=== PATIENT | female | born 1995 ===

== ENCOUNTER 2025-01-22 23:41 | Emergency (ER) | payer MEDICAID ==
[~2025-01-22] VITALS: Ht 175.3 cm; Wt 65.0 kg
[2025-01-22 23:42] VITALS: O2SAT 99
[2025-01-23 00:20] LABS: CHLORIDE 106 mEq/L (98-107); POTASSIUM 3.6 mEq/L (3.5-5.1); SODIUM 140 mEq/L (136-145)
[2025-01-23 00:21] LABS: CALCIUM 9.3 mg/dL (8.7-10.4); CARBON DIOXIDE 28 mEq/L (21-32)
[2025-01-23 00:24] LABS: CLARITY URINE TURBID (CLEAR); COLOR URINE YELLOW (YELLOW); GLUCOSE URINE NEGATIVE (NEGATIVE); KETONES URINE NEGATIVE (NEGATIVE); LEUKOCYTE ESTERASE URINE 2+ (NEGATIVE); NITRITE URINE NEGATIVE (NEGATIVE); OCCULT BLOOD URINE NEGATIVE (NEGATIVE); PH URINE 6.5 (4.5-8.0); PROTEIN URINE NEGATIVE (NEGATIVE); UROBILINOGEN URINE 0.2 E.U./dL (0.2-1.0)
[2025-01-23 00:25] LABS: UREA NITROGEN BLOOD 7 mg/dL (9-23)
[2025-01-23 00:26] LABS: CREATININE 0.6 mg/dL (0.6-1.0); GLUCOSE 98 mg/dL (70-105)
[2025-01-23 00:27] LABS: BASOPHILS % 1.3 % (0.0-2.0); EOSINOPHILS % 1.5 % (0.0-5.0); HEMATOCRIT. 34.1 % (36.0-48.0); HEMOGLOBIN. 11.5 g/dL (12.0-16.0); LYMPHOCYTES % 33.9 % (20.0-50.0); MEAN CORPUSCULAR HEMOGLOBIN 29.5 pg (28.0-32.0); MEAN CORPUSCULAR HGB CONC 33.8 g/dL (31.0-37.0); MEAN CORPUSCULAR VOLUME 87.1 fL (81.0-99.0); MEAN PLATELET VOLUME 7.7 fl (7.4-10.4); MONOCYTES % 7.3 % (2.0-8.0); PLATELET 429 x1000/uL (130-400); RED BLOOD CELL COUNT 3.91 mill/uL (4.2-5.4); RED CELL DISTRIBUTION WIDTH 15.2 % (11.6-14.6); WHITE BLOOD COUNT 9.2 x1000/uL (4.5-11.0)
[2025-01-23 00:28] LABS: ACETAMINOPHEN < 2 ug/mL (10-30); ALANINE AMINOTRANSFERASE 11 IU/L (10-49); ALBUMIN 3.9 g/dL (3.2-4.8); ASPARTATE AMINOTRANSFERASE 15 IU/L (<34); BILIRUBIN DIRECT 0.1 mg/dL (<=3.0); BILIRUBIN TOTAL 0.4 mg/dL (0.1-1.0); PROTEIN TOTAL 6.9 g/dL (6.0-8.3)
[2025-01-23 00:34] LABS: *AMPHETAMINES SCREEN URINE NEGATIVE (NEGATIVE); *BARBITURATES SCREEN URINE NEGATIVE (NEGATIVE); *BENZODIAZEPINES SCREEN URINE NEGATIVE (NEGATIVE)
[2025-01-23 00:35] LABS: *COCAINE SCREEN URINE NEGATIVE (NEGATIVE); CANNABINOID URINE SCREEN NEGATIVE (NEGATIVE); ECSTASY MDMA SCREEN URINE NEGATIVE (NEGATIVE); METHADONE URINE SCREEN NEGATIVE (NEGATIVE); OPIATES URINE SCREEN NEGATIVE (NEGATIVE); PHENCYCLIDINE URINE SCREEN NEGATIVE (NEGATIVE)
[2025-01-23] MEDS ORDERED: LAMO25TA71 MT (00:37)
[2025-01-23] MEDS ORDERED: ARIP5TAB51 MT (00:38)
[2025-01-23 00:40] LABS: HCG SCREEN NEGATIVE
[2025-01-23 00:46] LABS: ETHANOL BLOOD < 10 mg/dL (<10)
[2025-01-23] MEDS: LAMOTRIGINE 25MG TABLET PO SCH (01:00)
[2025-01-23 01:07] LABS: SQUAMOUS EPITHELIAL CELL URINE 2+ /lpf (RARE/1+)
[2025-01-23 01:08] LABS: RBC URINE 0-2 /hpf (0-2); WBC URINE 15-25 /hpf (0-2)
[2025-01-23 01:09] LABS: BACTERIA URINE TRACE
[2025-01-23] MEDS ORDERED: ARIPIPRAZOLE 5MG TABLET PO NR (01:15)
[2025-01-23] MEDS: ARIPIPRAZOLE 5MG TABLET PO ONE (01:16)
[2025-01-23] MEDS ORDERED: *PATIENT'S OWN MEDICATION STORAGE XX SCH (07:00)
[2025-01-23] MEDS: ARIPIPRAZOLE 5MG TABLET PO SCH (09:00)
[2025-01-23] MEDS: NITROFURANTOIN 100MG M/M CAPSULE PO ONE (20:23)
[2025-01-23 20:30] VITALS: BP 110/65; PULSE 86; RESP 16; TEMP 36.8; O2SAT 100
== END 2025-01-23 21:30 ==
LOC: ER 23:41
DX: R45.851 Suicidal ideations (principal); F31.5 Bipolar disorder, current episode depressed, severe, with psychotic features; F43.10 Post-traumatic stress disorder, unspecified; Z79.899 Other long term (current) drug therapy; Z20.822 Contact with and (suspected) exposure to COVID-19
CPT/HCPCS: 80076; 80048; 80307; 80329; 80320; 84703; 85025; 36415; 99285; 80305; 81003; 87086; 87426; Z7610; G0480